=== PATIENT | female | born 1970 | race Caucasian/White ===

== ENCOUNTER → 2017-05-25 | Outpatient (CLI) | payer MEDICAID ==
[~2017-05-25] MED LIST: AMLO5TAB PO; CIPRO 750MG TA750 MG PO; FLEXERIL10 MG PO; LEVOTHYROXINE0.1 M1 PO; LORTAB 500 MG-11 TAB PO; NORCO 325 MG-51 TAB PO; PREDNISONE 20MG20 MG PO; VENTOLIN H0.09 MG/Ac IH
[2017-05-25 19:00] LABS: LYMPH # 2.7 K/mm3 (0.7-4.5); LYMPH % 31.6 % (10-50.0)
[2017-05-25 19:05] LABS: HEMOGLOBIN 16.8 g/dL (12.2-16.2)
[2017-05-25 19:51] LABS: BUN 15 mg/dL (7-18)
[2017-05-25 19:55] LABS: GFR (ESTIMATED) 67 ML/MIN (59-)
== END ==
LOC: LAB 18:36
PROVIDERS: Physician Assistant
DX: I10 Essential (primary) hypertension (principal); E11.9 Type 2 diabetes mellitus without complications; E03.9 Hypothyroidism, unspecified